=== PATIENT | female | born 1960 | race Caucasian/White ===

== ENCOUNTER → 2017-08-01 | Outpatient (CLI) | payer BC ==
--- NOTE | 2017-08-06 08:09 | MM ---
Reason for exam: screening (asymptomatic). Last mammogram was performed 1 year and 1 month ago. History: Patient is postmenopausal and has history of other cancer at age 49. Family history of breast cancer in 2 paternal aunts and breast cancer in 2 maternal aunts. Benign MG stereo VAD BX RT of the right breast, July 11, 2015. Benign US breast aspiration ea add LT of the left breast, July 11, 2015. Benign US breast aspiration single LT of the left breast, July 11, 2015. Benign US biopsy breast VAD RT of the right breast, July 11, 2015. Benign right US cyst aspiration ea add of the right breast, July 19, 2011. Benign right US cyst aspiration of the right breast, July 19, 2011. Benign cyst aspiration of the left breast, 2009. Benign cyst aspiration of the right breast. Benign excisional biopsy of the left breast. Physical Findings: A clinical breast exam by your physician is recommended on an annual basis and results should be correlated with mammographic findings. MG 3D Screening Mammo W/Cad Bilateral CC and MLO view(s) were taken. Prior study comparison: July 09, 2016, bilateral MG 3d diag mammo w/cad [facility]. July 11, 2015, left breast MG diagnostic mammo LT wo CAD. The breast tissue is extremely dense which could obscure a lesion on mammography. Previous mammotome biopsy in the right and left breast. No significant changes when compared with prior studies. ASSESSMENT: Benign, BI-RAD 2 RECOMMENDATION: Routine screening mammogram of both breasts in 1 year.
== END | disposition home or self-care (01) ==
LOC: RADMAMWWP 13:36
PROVIDERS: ATTEND Obstetrics & Gynecology
DX: Z12.31 Encounter for screening mammogram for malignant neoplasm of breast (principal)
CPT/HCPCS: 77063; G0202

== ENCOUNTER → 2019-02-16 | Outpatient (CLI) | payer BC ==
--- NOTE | 2019-02-16 17:38 | BD ---
EXAMINATION TYPE: Axial Bone Density DATE OF EXAM: 02/16/2019 COMPARISON: NONE CLINICAL HISTORY: 58-year-old female disorder of bone Height: 64.5 IN Weight: 189 LBS FRAX RISK QUESTIONS: Family History (Parent hip fracture): YES MOTHER RISK FACTORS HISTORY OF: History of Wrist Fracture: LEFT WRIST FX When: AGE 13 Active: YES Postmenopausal woman: AGE 54 MEDICATIONS: Additional Medications: GLUCOSAMINE CHONDROITIN, DAILY VITAMIN, FLAX SEED OIL, CRANBERRY, HAIR NAIL AND SKIN, ACID REFLUX MED EXAM MEASUREMENTS: Bone mineral densitometry was performed using the [employer]. Bone mineral density as measured about the Lumbar spine is: ----- L1-L4(G/cm2): 1.048 T Score Values are as follows: ----- L2: -1.4 ----- L3: -1.3 ----- L4: -0.8 ----- L1-L4: -1.1 Bone mineral density has: DECREASED -8.2% since study of: 07/09/2016 Bone mineral density about the R hip (g/cm2): 0.798 Bone mineral density about the L hip (g/cm2): 0.804 T Score values are as follows: -----R Neck: -1.7 -----L Neck: -1.7 -----R Total: -1.3 -----L Total: -1.3 Bone mineral density has: DECREASED -4.9% since study of: 07/09/2016 IMPRESSION: Osteopenia (T Score between -2.5 and -1). There is slightly increased risk of fracture and the patient may be considered for treatment. Re-Screen 2-5 years. NOTE: T-SCORE=SD OF THE YOUNG ADULT MEAN.
--- NOTE | 2019-02-17 14:08 | MM ---
Reason for exam: screening (asymptomatic). Last mammogram was performed 1 year and 7 months ago. History: Patient is postmenopausal and has history of other cancer at age 49. Family history of breast cancer in 2 paternal aunts and breast cancer in 2 maternal aunts. Benign MG stereo VAD BX RT of the right breast, July 11, 2015. Benign US breast aspiration ea add LT of the left breast, July 11, 2015. Benign US breast aspiration single LT of the left breast, July 11, 2015. Benign US biopsy breast VAD RT of the right breast, July 11, 2015. Benign right US cyst aspiration ea add of the right breast, July 19, 2011. Benign right US cyst aspiration of the right breast, July 19, 2011. Benign cyst aspiration of the left breast, 2009. Benign cyst aspiration of the right breast. Benign excisional biopsy of the left breast. Physical Findings: A clinical breast exam by your physician is recommended on an annual basis and results should be correlated with mammographic findings. MG 3D Screening Mammo W/Cad Bilateral CC and MLO view(s) were taken. Prior study comparison: August 01, 2017, bilateral MG 3d screening mammo w/cad. July 09, 2016, bilateral MG 3d diag mammo w/cad [facility]. The breast tissue is heterogeneously dense. This may lower the sensitivity of mammography. Previous mammotome biopsy in the right breast x 2 and in the left breast. There is chronic nodularity in the left breast. No significant changes when compared with prior studies. ASSESSMENT: Benign, BI-RAD 2 RECOMMENDATION: Routine screening mammogram of both breasts in 1 year.
== END | disposition home or self-care (01) ==
LOC: RADBDWWP 16:06
PROVIDERS: ATTEND Obstetrics & Gynecology
DX: Z12.31 Encounter for screening mammogram for malignant neoplasm of breast (principal); M85.851 Other specified disorders of bone density and structure, right thigh; M85.852 Other specified disorders of bone density and structure, left thigh; M85.88 Other specified disorders of bone density and structure, other site
CPT/HCPCS: 77063; 77067; 77080

== ENCOUNTER → 2020-07-12 | Outpatient (CLI) | payer BC ==
--- NOTE | 2020-07-14 11:38 | MM ---
Reason for exam: screening (asymptomatic). Last mammogram was performed 1 year and 5 months ago. History: Patient is postmenopausal and has history of other cancer at age 49. Family history of breast cancer in 2 paternal aunts and breast cancer in 2 maternal aunts. Benign MG stereo VAD BX RT of the right breast, July 11, 2015. Benign US breast aspiration ea add LT of the left breast, July 11, 2015. Benign US breast aspiration single LT of the left breast, July 11, 2015. Benign US biopsy breast VAD RT of the right breast, July 11, 2015. Benign right US cyst aspiration ea add of the right breast, July 19, 2011. Benign right US cyst aspiration of the right breast, July 19, 2011. Benign cyst aspiration of the left breast, 2009. Benign cyst aspiration of the right breast. Benign excisional biopsy of the left breast. Physical Findings: A clinical breast exam by your physician is recommended on an annual basis and results should be correlated with mammographic findings. MG 3D Screening Mammo W/Cad Bilateral CC and MLO view(s) were taken. Prior study comparison: February 16, 2019, bilateral MG 3d screening mammo w/cad. August 01, 2017, bilateral MG 3d screening mammo w/cad. The breast tissue is heterogeneously dense. This may lower the sensitivity of mammography. Previous mammotome biopsy in the right and left breast. There is chronic nodularity in the right breast medially and in the left breast posteriorly. No significant changes when compared with prior studies. ASSESSMENT: Benign, BI-RAD 2 RECOMMENDATION: Routine screening mammogram of both breasts in 1 year.
== END | disposition home or self-care (01) ==
LOC: RADMAMWWP 14:51
PROVIDERS: ATTEND Obstetrics & Gynecology
DX: Z12.31 Encounter for screening mammogram for malignant neoplasm of breast (principal)
CPT/HCPCS: 77063; 77067

== ENCOUNTER → 2021-09-19 | Outpatient (CLI) | payer BC ==
--- NOTE | 2021-09-19 14:16 | XR ---
EXAMINATION TYPE: XR chest 2V DATE OF EXAM: 09/19/2021 COMPARISON: None HISTORY: 60-year-old female R05, cough TECHNIQUE: Frontal and lateral views FINDINGS: Heart normal size. Aorta and artery vasculature within normal limits. Mild interstitial prominence wi thout consolidation or pleural effusion. IMPRESSION: Mild interstitial prominence could reflect bronchitis or asthma. No focal infiltrate seen.
== END ==
LOC: RADXRWHC 10:27
PROVIDERS: ATTEND Internal Medicine
DX: R05.9 Cough, unspecified (principal)
CPT/HCPCS: 71046

== ENCOUNTER → 2021-09-19 | Outpatient (CLI) | payer BC ==
--- NOTE | 2021-09-20 10:31 | MM ---
Reason for exam: screening (asymptomatic). Last mammogram was performed 1 year and 2 months ago. History: Patient is postmenopausal and has history of other cancer at age 49. Family history of breast cancer in 2 paternal aunts and breast cancer in 2 maternal aunts. Benign MG stereo VAD BX RT of the right breast, July 11, 2015. Benign US breast aspiration ea add LT of the left breast, July 11, 2015. Benign US breast aspiration single LT of the left breast, July 11, 2015. Benign US biopsy breast VAD RT of the right breast, July 11, 2015. Benign right US cyst aspiration ea add of the right breast, July 19, 2011. Benign right US cyst aspiration of the right breast, July 19, 2011. Benign cyst aspiration of the left breast, 2009. Benign cyst aspiration of the right breast. Benign excisional biopsy of the left breast. Physical Findings: A clinical breast exam by your physician is recommended on an annual basis and results should be correlated with mammographic findings. MG 3D Screening Mammo W/Cad Bilateral CC and MLO view(s) were taken. Prior study comparison: July 12, 2020, bilateral MG 3d screening mammo w/cad. February 16, 2019, bilateral MG 3d screening mammo w/cad. The breast tissue is heterogeneously dense. This may lower the sensitivity of mammography. Benign appearing bilateral calcifications. Previous mammotome biopsy in the right and left breast. There is chronic nodularity in the left breast, stable. No significant changes when compared with prior studies. ASSESSMENT: Benign, BI-RAD 2 RECOMMENDATION: Routine screening mammogram of both breasts in 1 year.
== END | disposition home or self-care (01) ==
LOC: RADMAMWWP 10:19
PROVIDERS: ATTEND Obstetrics & Gynecology
DX: Z12.31 Encounter for screening mammogram for malignant neoplasm of breast (principal); Z80.3 Family history of malignant neoplasm of breast
CPT/HCPCS: 77063; 77067

== ENCOUNTER → 2023-12-03 | Outpatient (CLI) | payer BC ==
--- NOTE | 2023-12-03 16:37 | MM ---
Reason for Exam: Screening (asymptomatic). Last mammogram was performed 2 year(s) and 3 month(s) ago. Patient History: Menarche at age 13. First Full-Term at age 31. Late child-bearing (after 31). Postmenopausal. Other cancer, age 49. Benign Cyst Aspiration on the right side. 2009, Benign Cyst Aspiration on the left side. Benign Excisional Biopsy on the left side. 07/11/2015, Benign Cyst Aspiration on the left side. 07/11/2015, Benign Cyst Aspiration on the left side. 07/11/2015, Benign Core Biopsy on the right side. 07/11/2015, Benign Core Biopsy on the right side. 07/19/2011, Benign Cyst Aspiration on the right side. 07/19/2011, Benign Cyst Aspiration on the right side. Paternal aunt had breast cancer. Paternal aunt had breast cancer. Maternal aunt had breast cancer. Maternal aunt had breast cancer. Risk Values: Twila 5 year model risk: 3.2%. NCI Lifetime model risk: 13.8%. Prior Study Comparison: 02/16/2019 Bilateral Screening Mammogram, [facility]. 07/12/2020 Bilateral Screening Mammogram, [facility]. 09/19/2021 Bilateral Screening Mammogram, [facility]. Tissue Density: The breast tissue is heterogeneously dense. This may lower the sensitivity of mammography. Findings: Analyzed By CAD. Pattern appears symmetrical and stable. Scattered benign calcifications are stable. Surgical core markers are present bilaterally. No suspicious groups of microcalcifications, spiculated or lobular masses, architectural distortion or other secondary signs of malignancy are mammographically apparent. Overall Assessment: Benign, BI-RAD 2 Management: Screening Mammogram of both breasts in 1 year. A negative mammogram report should not preclude additional follow up of suspicious palpable abnormalities. Patient should continue monthly self breast exam. A clinical breast exam by your physician is recommended on an annual basis and results should be correlated with mammographic findings. Electronically signed and approved by: Osmar Salmeron D.O. Radiologis
== END | disposition home or self-care (01) ==
LOC: RADMAMWWP 07:43
PROVIDERS: ATTEND Obstetrics & Gynecology
DX: Z12.31 Encounter for screening mammogram for malignant neoplasm of breast (principal); Z80.3 Family history of malignant neoplasm of breast; Z78.0 Asymptomatic menopausal state
CPT/HCPCS: 77063; 77067